=== PATIENT | female | born 1995 | race Two or more races ===

== ENCOUNTER 2017-08-01 15:18 | Emergency (ER) | payer MEDICAID, OTHER ==
[~2017-08-01] VITALS: Ht 160 cm; Wt 79.4 kg
[2017-08-01 17:11] VITALS: BP 129/79
[2017-08-01] MEDS ORDERED: KETOROLAC TROMETH 60MG/2ML VIAL IM ONE (17:15)
== END 2017-08-01 17:57 | disposition home or self-care (01) ==
LOC: ER 15:23
DX: M54.5 Low back pain (principal); M54.2 Cervicalgia; V39.50XA Passenger in three-wheeled motor vehicle injured in collision with unspecified motor vehicles in traffic accident, initial encounter; Y93.89 Activity, other specified; Y99.8 Other external cause status; Y92.410 Unspecified street and highway as the place of occurrence of the external cause
CPT/HCPCS: 72100; 96372; 99284; J1885